=== PATIENT | male | born 1970 | race Caucasian/White ===

== ENCOUNTER 2020-04-28 06:33 | Emergency (ER) | payer OTHER ==
[~2020-04-28] VITALS: Ht 182.9 cm; Wt 90.1 kg
[2020-04-28] MEDS ORDERED: ESCI10TA10 PO (07:11)
--- NOTE | 2020-04-28 07:12 | NUR ---
CHEST PAIN FOR ABOUT A WEEK. DULL OFF AND ON PAIN, STARTING TO BE CONSTANT PAIN LOCALIZED IN MIDDLE OF CHEST. PT REPORTS SOB. 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 20G IV IN RIGHT AC, BLOOD SENT TO LAB.
--- NOTE | 2020-04-28 07:32 | NUR ---
XRAY IN ROOM
[2020-04-28 07:35] LABS: BASOPHILS # (AUTO) 0.04 x10^3/uL (0-0.1); BASOPHILS % (AUTO) 1 % (0-1); EOSINOPHILS # (AUTO) 0.14 x10^3/uL (0-0.4); EOSINOPHILS % (AUTO) 3 % (1-7); LYMPHOCYTES # (AUTO) 0.81 x10^3/uL (1-3.4); LYMPHOCYTES % (AUTO) 17 % (22-44); MD NO; MEAN CORPUSCULAR HGB CONC 32.7 g/dL (33.2-36.2); MEAN CORPUSCULAR VOLUME 88.7 fL (81-97); MEAN PLATELET VOLUME 8.3 fL (7.4-10.4); MONOCYTES # (AUTO) 0.68 x10^3/uL (0.2-0.8); MONOCYTES % (AUTO) 14 % (2-9); NEUTROPHILS # (AUTO) 3.19 x10^3/uL (1.8-6.8); NEUTROPHILS % (AUTO) 66 % (42-75); PLATELET COUNT 240 x10^3/uL (130-400); RED BLOOD COUNT 5.49 x10^6/uL (4.38-5.82); RED CELL DISTRIBUTION WIDTH 12.9 % (9.4-14.8)
[2020-04-28 07:47] LABS: ALANINE AMINOTRANSFERASE 30 U/L (12-78); ALBUMIN 3.9 g/dL (3.4-5.0); ANION GAP 5 mmol/L (5-15); CALCIUM 9.9 mg/dL (8.5-10.1); CHLORIDE 107 mmol/L (98-107); CREATININE 1.14 mg/dL (0.7-1.3)
[2020-04-28 07:51] LABS: ALKALINE PHOSPHATASE 80 U/L (45-117); BILIRUBIN,TOTAL 0.8 mg/dL (0.2-1.0); TOTAL PROTEIN 8.1 g/dL (6.4-8.2); TROPONIN I < 0.015 ng/mL (0.000-0.045)
[2020-04-28 08:47] VITALS: BP 125/78
== END 2020-04-28 08:49 | disposition home or self-care (01) ==
LOC: ED 07:33
DX: R07.89 Other chest pain (principal); R06.02 Shortness of breath
CPT/HCPCS: 36415; 71045; 80053; 84484; 85025; 93005; 99285

== ENCOUNTER → 2020-06-04 | Outpatient (CLI) | payer OTHER ==
[~2020-06-04] MED LIST: ESCI10TA10 PO
== END | disposition home or self-care (01) ==
LOC: CFH 15:51
PROVIDERS: ATTEND Internal Medicine Cardiovascular Disease
DX: R07.89 Other chest pain (principal)
CPT/HCPCS: 93306

== ENCOUNTER 2020-10-21 16:28 | Outpatient (CLI) | payer OTHER | END 2020-10-21 23:59 | disposition home or self-care (01) | LOC: RAD 16:28 | PROVIDERS: ATTEND Chiropractor | DX: M47.813 Spondylosis without myelopathy or radiculopathy, cervicothoracic region (principal); M47.817 Spondylosis without myelopathy or radiculopathy, lumbosacral region; M99.01 Segmental and somatic dysfunction of cervical region; M99.02 Segmental and somatic dysfunction of thoracic region; M99.03 Segmental and somatic dysfunction of lumbar region; M99.04 Segmental and somatic dysfunction of sacral region | CPT/HCPCS: 72040; 72072; 72100; 72170 ==

== ENCOUNTER 2020-11-26 15:16 | Outpatient (CLI) | payer OTHER ==
[2020-11-26] MEDS ORDERED: MULT1TAB9 PO (15:51)
[2020-11-26] MEDS ORDERED: chondroitin PO (15:51)
[2020-11-26] MEDS ORDERED: CHOL10003 PO (15:51)
[2020-11-26] MEDS ORDERED: TURMERIC CURCUMIN PO (15:51)
[2020-11-26] MEDS ORDERED: GLUC15006 PO (15:51)
== END 2020-11-26 23:59 | disposition home or self-care (01) ==
LOC: STAR 15:16
PROVIDERS: ATTEND Thoracic Surgery (Cardiothoracic Vascular Surgery)
DX: Z20.822 Contact with and (suspected) exposure to COVID-19 (principal); K40.91 Unilateral inguinal hernia, without obstruction or gangrene, recurrent
CPT/HCPCS: U0003

== ENCOUNTER 2020-12-01 11:55 | Day surgery (SDC) | payer OTHER ==
[~2020-12-01] VITALS: Ht 185.4 cm; Wt 87.6 kg
[~2020-12-01 11:55] MED LIST changes: +BUPIVACAINE/PF 0.5% ONE; +CHOL10003 PO; +EPINEPHRINE 1 MG/ML, 1ML ONE; +GLUC15006 PO; +MULT1TAB9 PO; +TURMERIC CURCUMIN PO; +chondroitin PO
[2020-12-01] MEDS ORDERED: NAPR-872 PO (12:33)
[2020-12-01 12:34] VITALS: BP 116/79
[2020-12-01] MEDS ORDERED: CHLORHEXIDINE 15 ML UDC ONE (12:41)
[2020-12-01] MEDS ORDERED: CHLORHEXIDINE 15 ML UDC PO ONE (13:00)
[2020-12-01] MEDS ORDERED: LACTATED RINGERS 1,000 ML IV SCH ×2 (13:00→15:30)
[2020-12-01] MEDS ORDERED: MIDAZOLAM 1 MG/ML, 2ML ONE (13:50)
[2020-12-01] MEDS ORDERED: FENTANYL PF 250 MCG/5ML ONE (13:50)
[2020-12-01] MEDS ORDERED: ROCURONIUM 10 MG/ML,10ML ONE (13:51)
[2020-12-01] MEDS ORDERED: GLYCOPYRROLATE 0.2MG/1ML, 5ML ONE (13:51)
[2020-12-01] MEDS ORDERED: DEXAMETHASONE 4 MG/ML, 5ML ONE (14:00)
[2020-12-01] MEDS ORDERED: CEFAZOLIN 1,000 MG ONE ×2 (14:00)
[2020-12-01] MEDS ORDERED: ONDANSETRON 2MG/ML, 2ML ONE ×2 (14:00)
[2020-12-01] MEDS ORDERED: SUCCINYLCHOLINE 20 MG/ML, 10ML ONE (14:00)
[2020-12-01] MEDS ORDERED: PROPOFOL 10 MG/ML, 20ML ONE (14:00)
[2020-12-01] MEDS ORDERED: KETOROLAC 30 MG/1 ML ONE (15:10)
[2020-12-01] MEDS ORDERED: HYDR-3237 PO (15:27)
[2020-12-01] MEDS ORDERED: HYDROmorphone 1 MG/ML, 1ML INJ IVPush PRN (15:30)
[2020-12-01] MEDS ORDERED: LABETALOL 5MG/ML, 20ML IV PRN (15:30)
[2020-12-01] MEDS ORDERED: DIPHENHYDRAMINE 50 MG/ML, 1ML IVPush PRN ×2 (15:30)
[2020-12-01] MEDS ORDERED: KETOROLAC 30 MG/1 ML IVPush PRN (15:30)
[2020-12-01] MEDS ORDERED: HYDROcodone/APAP 5/325 TABLET PO PRN (15:30)
[2020-12-01] MEDS ORDERED: ALBUTEROL SULFATE 2.5 MG/3 ML NPPB PRN (15:30)
[2020-12-01] MEDS ORDERED: PROMETHAZINE 12.5 MG SUPP PR PRN (15:30)
[2020-12-01] MEDS ORDERED: EPHEDRINE 50 MG/ML, 1ML IVPush PRN (15:30)
[2020-12-01] MEDS ORDERED: MIDAZOLAM 1 MG/ML, 2ML IV PRN (15:30)
[2020-12-01] MEDS ORDERED: PROMETHAZINE 25 MG/ML, 1ML IVPush PRN (15:30)
[2020-12-01] MEDS ORDERED: DIAZEPAM 5 MG/ML, 2ML IVPush PRN (15:30)
[2020-12-01] MEDS ORDERED: ONDANSETRON 2MG/ML, 2ML IVPush PRN ×2 (15:30)
[2020-12-01] MEDS ORDERED: hydrALAzine 20 MG/ML, 1ML IV PRN (15:30)
[2020-12-01] MEDS ORDERED: MEPERIDINE/PF 25MG/0.5ML IVPush PRN (15:30)
[2020-12-01] MEDS ORDERED: ACETAMINOPHEN 325 MG TABLET PO PRN (15:30)
[2020-12-01] MEDS ORDERED: morphine SULFATE 10 MG/ML, 1ML IVPush PRN (15:30)
[2020-12-01] MEDS ORDERED: FENTANYL PF 100 MCG/2ML ONE (15:39)
[2020-12-01] MEDS: FENTANYL PF 100 MCG/2ML IV PRN ×3 (15:40→15:57)
[2020-12-01] MEDS ORDERED: OXYcodone 5 MG/5 ML ORAL.SOL UDC ONE (15:48)
[2020-12-01] MEDS ORDERED: ACETAMINOPHEN 650 MG/20.3 ML UDC ONE (15:48)
[2020-12-01] MEDS: OXYcodone 5 MG/5 ML ORAL.SOL UDC PO PRN ×2 (15:49→16:45)
== END 2020-12-01 17:30 | disposition home or self-care (01) ==
LOC: OR 11:55
PROVIDERS: ATTEND Thoracic Surgery (Cardiothoracic Vascular Surgery)
DX: K40.91 Unilateral inguinal hernia, without obstruction or gangrene, recurrent (principal); D17.6 Benign lipomatous neoplasm of spermatic cord; F41.9 Anxiety disorder, unspecified; F32.9 Major depressive disorder, single episode, unspecified; E55.9 Vitamin D deficiency, unspecified; Z79.899 Other long term (current) drug therapy
CPT/HCPCS: 49520; C1781; J0171; J0330; J0690; J1100; J1885; J2250; J2405; J2704; J3010; J7120